=== PATIENT | male | born 1980 | race Caucasian/White ===

== ENCOUNTER 2018-04-13 16:56 | Emergency (ER) | payer SELFPAY ==
[2018-04-13] MEDS: LIDOCAINE 1%/EPI 30 ML INJ INJ (17:57)
[2018-04-13] MEDS: LIDOCAINE 1%/EPI (1:100,000) (MDV) 20 ML INJ (17:57)
== END 2018-04-13 19:52 | disposition home or self-care (01) ==
LOC: FTE 16:56
DX: I83.92 Asymptomatic varicose veins of left lower extremity (principal); F17.210 Nicotine dependence, cigarettes, uncomplicated
CPT/HCPCS: 12001; 99282-25